=== PATIENT | female | born 1935 | race Caucasian/White ===

== ENCOUNTER → 2016-10-22 | Outpatient (CLI) | payer OTHER ==
[~2016-10-22] MED LIST: AMBIEN10 MG PO; APAP PO; ASPIRIN PO; CENTRUM SILVER PO; FOSAMAX PO; HCTZ PO; LOTREL 10/20 MG1 CAP PO; LOVENOX40 MG/0.4 INJ; MAIL ORDER PHARMACY; MOVE FREE; NORVASC10 MG PO; OYSTER CALCIUM500 MG PO; PRILOSEC PO; PROTONIX PO; VIT B-12 PO; [UNRECOGNIZED DRUG - OTHER] PO
--- NOTE | ~2016-10-22 | BD1 ---
[facility] A Service of [facility] & [facility] RADIOLOGY TEXT RESULTS PATIENT: ANNA SINCLAIR LOCATION: [facility] : 35 UNIT #: [id number] AGE: [address]: JENIFER DUMONT APRN SEX: F ORDER DR: [id number] [facility] [address] [place], [place] [address] [id number] O MR#: [id number] Acc #: [id number] NAME: ANNA SINCLAIR : 1935 SEX: F STUDY DATE/TIME: 10/22/2016 11:54 UNIT: [facility] ROOM: STUDY DESCRIPTION: BD Dexa Bone Dens 1+ Site Attending Physician: Jenifer Oliva M.D. Ordering Physician: Jenifer Oliva M.D. Primary Care Physician: Jenifer Oliva M.D. MEDICAL IMAGING REPORT This report is preliminary unless electronic signature is present EXAM Bone density spine hip 10/22/2016 HISTORY Post menopausal. Family history of osteoporosis in mother. FINDINGS Bone density scanning performed at the L2-L4 levels and in the proximal left femur in this 150-pound 81-year-old female. Comparison 03/12/2013. L2-L4: Total bone mineral density 1.070 g/cm2 for T-score 0.1 standard deviation below mean for reference population normal young individuals and Z-score 2.7 standard deviations above the mean for age-match population. Compared to 03/12/2013 there has been a 9.8% statistically significant increase in bone mineral density in this region. In the proximal left femur the total bone mineral density is 0.611 g/cm2 for T-score 2.7 standard deviation below mean for reference population normal young individuals and Z-score 0.6 standard deviations below the mean for age-match population. In left femoral neck specifically bone mineral density is 0.508 g/cm2 for T-score 3.1 standard deviation below mean for reference population normal young individuals and Z-score 0.7 standard deviations below the mean for age-match population. Using total bone mineral density as trending value in this region there has been a 4.2% increase in proximal left femoral bone mineral density compared to 03/12/2013. IMPRESSION 1. 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 Patient felt to be at significantly increased risk for fracture. Treatment options may be considered. Continued surveillance is recommended. 2. Statistically significant increase in overall bone mineral density at the L2-L4 levels. See remainder of trending data in body of report above. [facility] A Service of [facility] RADIOLOGY TEXT RESULTS PATIENT: ANNA SINCLAIR LOCATION: [facility] : 35 UNIT #: [id number] AGE: [address]: JENIFER DUMONT APRN SEX: F ORDER DR: Dictated by... Sean Sweeney M.D. THIS IS AN ELECTRONICALLY VERIFIED REPORT Sean Sweeney M.D. at 10/25/2016 5:54 PM CHASITY/jorje TD: 10/23/2016 01:10 JOB #: [id number] MEDICAL IMAGING REPORT Page 1 of 1 COPY
--- NOTE | ~2016-10-22 | MY11 ---
[facility] A Service of [facility] & [facility] RADIOLOGY TEXT RESULTS PATIENT: ANNA SINCLAIR LOCATION: [facility] : 35 UNIT #: [id number] AGE: [address]: JENIFER PRINCE APRN SEX: F ORDER DR: [id number] [facility] [address] [place], [place] [address] [id number] O MR#: [id number] Acc #: [id number] NAME: ANNA SINCLAIR : 1935 SEX: F STUDY DATE/TIME: 10/22/2016 11:41 UNIT: [facility] ROOM: STUDY DESCRIPTION: MY Mammogram Screening Dig Alirio Attending Physician: Jenifer Prince Ordering Physician: Jenifer Oliva M.D. Primary Care Physician: Jenifer Prince MEDICAL IMAGING REPORT This report is preliminary unless electronic signature is present EXAM Digital screening mammogram, 10/22/2016 HISTORY 81-year-old woman no risk elevation. Annual screening. COMPARISON Mammograms date to 09/04/2007 with most recent 02/14/2015. FINDINGS Digital imaging of each breast was completed utilizing a two-view examination of each breast in craniocaudal and mediolateral-oblique projections. Review and interpretation of digital mammograms include a second review in conjunction with FDA-approved CAD device. There is a normal parenchymal presentation bilaterally consistent with the patient's age. There are no breast masses imaged and no parenchymal asymmetry is visualized. There are no suspicious microcalcifications and I see no focal architectural disturbance. IMPRESSION Negative screening digital mammogram. One-year followup recommended. Patients over the age of 40 are entered into a reminder system with target due date for the next mammogram. A result letter will also be sent to the patient. BIRADS: 1 Negative Dictated by... Darius Hernandez M.D. THIS IS AN ELECTRONICALLY VERIFIED REPORT [facility] A Service of [facility] & [facility] RADIOLOGY TEXT RESULTS PATIENT: ANNA SINCLAIR LOCATION: [facility] : 35 UNIT #: [id number] AGE: [address]: JENIFER PRINCE APRN SEX: F ORDER DR: Darius Hernandez M.D. at 10/22/2016 3:31 PM Farshad TD: 10/22/2016 13:05 JOB #: [id number] MEDICAL IMAGING REPORT Page 1 of 1 COPY
== END | disposition home or self-care (01) ==
LOC: CWCC 10:52
DX: Z12.31 Encounter for screening mammogram for malignant neoplasm of breast (principal); Z78.0 Asymptomatic menopausal state; M81.0 Age-related osteoporosis without current pathological fracture; Z88.0 Allergy status to penicillin; Z88.8 Allergy status to other drugs, medicaments and biological substances
CPT/HCPCS: 77080; G0202